=== PATIENT | male | born 1985 | race Caucasian/White ===

== ENCOUNTER 2021-06-15 21:38 | Emergency (ER) | payer OTHER ==
[~2021-06-15] VITALS: Ht 177.8 cm; Wt 105.0 kg
[2021-06-15 21:47] VITALS: BP 143/83
== END 2021-06-16 03:00 | disposition left against medical advice (07) ==
LOC: ER 21:38
DX: Z53.21 Procedure and treatment not carried out due to patient leaving prior to being seen by health care provider (principal)